=== PATIENT | female | born 2000 | race Caucasian/White ===

== ENCOUNTER 2024-09-11 20:15 | Emergency (ER) | payer BC, SELFPAY ==
[2024-09-11 20:36] VITALS: BP 144/94; PULSE 130; RESP 20; TEMP 37.8; O2SAT 98; BMI 29.4
--- NOTE | 2024-09-11 21:11 | ED_ITS ---
HPI - General Adult General Time Seen by Provider: 21:11 Date Seen: 09/11/24 Chief complaint: Cough Stated complaint: nasal pressure, cough Time Seen by Provider: 09/11/24 21:03 Source: patient and RN notes reviewed Mode of arrival: ambulatory Limitations: no limitations History of Present Illness HPI narrative: This 23-year-old female is coming in with cough, nasal congestion and fevers. She was sick last week starting on , today is Tuesday. She had fevers for 4 days, they went away for 1 day but returned again today. She is having some discomfort in her right ear, admits it is not really pain but it is full feeling, diminished hearing and muffled sound. She has some nasal congestion but no facial pain, no dental pain. She does not feel postnasal drainage. She is still coughing, really has not changed. No history of asthma. Related Data Home Medications ?Medication ?Instructions ?Recorded ?Confirmed control 09/11/24 Previous Rx's ?Medication ?Instructions ?Recorded amoxicillin 875 mg-potassium 1 tab PO BID #14 tabs 09/11/24 clavulanate 125 mg tablet codeine 10 mg-guaifenesin 100 mg/5 5 - 10 ml PO Q6H PRN #120 mL 09/11/24 mL oral liquid (Guaifenesin AC) Allergies Allergy/AdvReac Type Severity Reaction Status Date / Time No Known Drug Allergies Allergy Verified 09/11/24 20:43 Review of Systems Status of ROS: Reports: 6 or more systems reviewed and unremarkable except as noted in History and below PFSH PFS Social History Smoking Status: Never smoker How often do you have a drink containing alcohol: monthly or less AUDIT-C Alcohol total score: 1 Non-prescribed substance use: denies use Exam Const: Vital Signs, click to edit/add: Vital Signs - 24 hr 09/11/24 20:36 Temperature 100.0 F H Pulse Rate [Pulse Oximeter] 130 H Respiratory Rate 20 Blood Pressure [Ri ght Upper Arm] 144/94 H Pulse Oximetry 98 Oxygen Delivery Me thod Room Air This 23-year-old female is alert, interactive, no apparent distress. Sclera slight injection but no drainage. No periorbital swelling or erythema. Pupils equal round reactive. Has some minimal drainage in her nares. Left TM canal looks normal. Right obscured by cerumen. Neck supple, no adenopathy. Lungs are clear, good air entry, no wheezing or crackles. CV fast but regular, no murmur, normal S1-S2, no S3-S4. Documenting provider has reviewed patient's vital signs: yes Course Course ED Course: Awaiting her triple viral swab. She is aware that there is very min in her right ear canal that may be causing the symptoms. Will try to curette it out 1st. Reevaluation(s) Time of Reevaluation #1: 21:24 Reevaluation #1: Attempted lighted ear cerumen removal from might ear. Wax is too far down in the canal, patient did not tolerate this, after solitary attempt stopped. Will have nursing staff do ear irrigation. Time of Reevaluation #2: 22:14 Reevaluation #2: Nursing staff did get a large piece of cerumen out of her ear. Her ear still feels plugged. There is maybe a little better sensation but overall still feels plugged. She occasionally will have some pain but mostly her ear just feels full and plugged. Re-evaluation of the ear canal shows white mucoid changes and bulging of the lower tympanic membrane, no erythema noted. There is no traumatic change from the ear wash. We are still awaiting the triple viral swab. It is likely that she is having a secondary complication or worsening of underlying virus. Would not be unheard of for DIANA to have fever, be better for a bit and have fever again. Given her ear findings, she is at risk for infection but does not appear infected yet. Time of Reevaluation #3: 22:51 Reevaluation #3: Have reviewed that her chest x-ray is completely normal. She does have influenza A. She is on day 5 of symptoms. The fact that her fever improved yesterday but is back today is not necessarily out of the realm of normal for me for this illness. She did not get her influenza vaccine this year. Will send an antibiotic in to the pharmacy, will have a placed on hold for 1 week. I do not think she requires an antibiotic but do want her to be able to have the capacity to get this if her ear is worsening. She states it still feels full, reviewed with her that it will because there is fluid in it. Antibiotic will not clear fluid but having fluid does put her at risk for subsequent infection. She will definitely feel pain if infection does start. She may have symptoms for 7-10 days, symptoms can linger longer than that but the actual illness itself can be a 7-10 day course illness. At this point, there is no evidence of secondary infection. She is not sleeping at night, will send some Robitussin with codeine in for her as well. Vital Signs Vital signs: Initial Vital Signs Temperature 100.0 F H 09/11/24 20:36 Temperature Source Temporal Artery Scan 09/11/24 20:36 Pulse Rate 130 H 09/11/24 20:36 Pulse Rhythm Regular 09/11/24 20:36 Respiratory Rate 20 09/11/24 20:36 Blood Pressure 144/94 H 09/11/24 20:36 Blood Pressure Mean 110 H 09/11/24 20:36 Blood Pressure Position Sitting 09/11/24 20:36 Pulse Oximetry 98 09/11/24 20:36 Oxygen Delivery Method Room Air 09/11/24 20:36 Vital Signs Temperature 100.0 F H 09/11/24 20:36 Pulse Rate 130 H 09/11/24 20:36 Respiratory Rate 20 09/11/24 20:36 Blood Pressure 144/94 H 09/11/24 20:36 Pulse Oximetry 98 09/11/24 20:36 Oxygen Delivery Method Room Air 09/11/24 20:36 Temperature 100.0 F H 09/11/24 20:36 Pulse Rate 130 H 09/11/24 20:36 Respiratory Rate 20 09/11/24 20:36 Blood Pressure 144/94 H 09/11/24 20:36 Pulse Oximetry 98 09/11/24 20:36 Oxygen Delivery Method Room Air 09/11/24 20:36 Medical Decision Making Lab Data Lab results reviewed: Yes I reviewed the patient's lab results Labs: Lab Results 09/11/24 Range/Units 20:49 SARS-CoV-2 (PCR) Negative SARS-CoV-2 (Negative) Influenza Type A (PCR) POSITIVE PCR FLU A A (Negative) Influenza Type B (PCR) Negative PCR FLU B (Negative) RSV (PCR) Negative PCR RSV (Negative) Imaging Data Chest x-ray: Attestation: I have reviewed the pertinent imaging results. My impression: One-view portable chest x-ray is not showing any evidence of infiltrate, lungs looked completely clear, no pleural effusion on my preliminary review. Radiologist's impression: Patient: KASSI VÁSQUEZ Facility:?[facility] Patient ID:?[id number] Site Patient ID:?[id number]. Site :?1998 Study:?XRay-Chest 1V-09/11/2024 10:35:19 PM Ordering Physician:?Laura Cassidy Final Report: Indication: Cough Technique: Single view of the chest Comparison: None Findings/Impression: No acute cardiopulmonary process detected. Dictated by Dhiraj Salinas MD @ 09/11/2024 10:39:05 PM (Electronic Signature) Discharge Plan Discharge Clinical Impression: Acute serous otitis media, right ear, Cerumen impaction, Influenza A Patient Disposition: Home, Self-Care Condition: Stable Instructions: Influenza (ED), Fluid In The Ear (Serous Otitis Media) (ED) Additional Instructions: Can continue with dull sin during the day, Robitussin with codeine at night to help with cough and cold symptoms. Do recommend getting some Flonase or Nasacort in using for the next 1-2 weeks to help try to alleviate the serous otitis in the right ear; follow bottle directions for dosing instructions. You are too late for Tamiflu to be helpful. Have sent prescription in for antibiotic to be used if your right ear does start to hurt. Antibiotics are not going to shorten or help this illness right now, this is viral. Continue with Tylenol and ibuprofen alternating for fever control. If you have concerns about her illness, think you are worsening or there are new issues, please seek re- evaluation. Note is provided to be out of work. Do recommend that you quarantine until you are improving and fever free off medicines for at least 24 hours. Activity Level: Activity as Tolerated Prescriptions: New amoxicillin-pot clavulanate 875-125 mg tablet 1 tab PO BID Qty: 14 0RF codeine-guaifenesin [Guaifenesin AC] 10-100 mg/5 mL liquid 5 - 10 ml PO Q6H PRNQty: 120 0RF No Action control Follow Up/Referrals: Provider,Not a Local [Primary Care Provider] - Stand Alone Forms: [facility] Info Instructions
--- OUTSIDE RECORDS SUMMARY | 2024-09-11 21:45 | XMS_ITS | Referral Summary ---
Author Organization [place] Address [facility] [place] [address] Care Team Providers Care Electric Razor Assembler Name Role Phone Jaquelin Mckay MD Unavailable [phone] Jaquelin Mckay MD Primary Care Provider [phone] Allergies No known active allergies Medications norgestim-eth estrad triphasic (ORTHO TRI-CYCLEN) 0.18/0.215/0.25 MG-35 MCG tabletIndications: Encounter for surveillance of contraceptive pills Take 1 tablet by mouth daily. 90 tablet 3 4 Active valACYclovir (VALTREX) 1000 mg tabletIndications: Cold sore Take 2 tablets (2,000 mg) by mouth 2 times daily. 4 tablet 4 4 Active Active Problems Problem Noted Date Diagnosed Date Encounter for surveillance of contraceptive pill s 06/07/2024 Pap smear of cervix declined 06/07/2023 Cold sore 06/07/2023 Mild intermittent asthma 06/15/2018 Allergic rhinitis 02/24/2007 Immunizations Name Administration Dates Next Due DTAP (<7y) 11/11/2003, 9,01/23/1999,11/19 Flu, Unspecified 06/15/2018 [id number] Novel Flu 10/07/2009 HEPATITIS A (PEDS 12M-18Y) 04/17/2013,05/04/2011 HPV9 04/25/2017,12/21/2016,04/06/2016 Hepatitis B, Peds 07/24/1999,1998,09/26/18 99 Historic Hib Hib-titer 03/20/1999,01/23/1999, Historical Rotavirus 01/23/1999 Influenza (H1N1) 10/07/2009 Influenza (IIV3) PF 08/22/2013, 2,06/19/2010,10/07,07/30/2008,08/09/2007,08/10/2006 ,08/08/2003,09/20/2002,08/01/2002 Influenza (prior to 2023) 10/07/2009 Influenza Vaccine >6 months,quad, PF 07/2022,07/27/2017,08/05/2016,07/28,07/03/2014 Influenza Vaccine, 6+MO IM (QUADRIVALENT W/PRESERVATIVES) 08/06/2020,06/25/2019,06/15/2018 Influenza, Split Virus, Triv alent, Pf (Fluzone\Fluarix) 10/07/2009 MMR 11/11/2003,10/08/1999 Meningococcal ACWY (Menveo ) 04/06/2016,05/04/2011 Pneumococcal (PCV 7) 10/05/2000,06/17/2000 Poliovirus, inactivated (IPV) 11/11/2003 ,12/24/1999,01/23/1999,11/19 Rotavirus, Pentavalent 01/23/1999 TDAP (Adacel,Boostrix) 04/29/2011 TRIHIBIT (DTAP/HIB, <7y) 12/24/1999 Td (Adult), Adsorbed 07/15/2021 Typhoid IM 09/11/2014 Varicella 11/25/2009,10/08/1999 Social History Tobacco Use Types Packs/Day Years Used Date Smoking Tobacco: Never Smokeless Tobacco: Never Tobacco Cessation:Counseling Given: Not Answered Alcohol Use Standard Drinks/Week Comments Yes 0 (1 standard drink = 0.6 oz pur e alcohol) 1-2 a week maybe Social Connection and Isolat ion Panel [NHANES] Answer Date Recorded Frequency of Communication w ith Friends and Family Not on file 06/05/2024 How often do you get togethe r with friends or relatives? More than three times a week 06/05/2024 Attends Yazidi Services Not on file 06/05 Active Member of Clubs or Organizations Not on f ile 06/05/2024 Attends Club or Organization Meetings Not on christ e 06/05/2024 Marital Status Not on file 06/05/2024 AUDIT-C Answer Date Recorded Q1: How often do you have a drink containing alc ohol? Monthly or less 06/07/2023 Q2: How many drinks containi ng alcohol do you have on a typical day when you are drinking? 1 or 2 06/07/2023 Frequency of Binge Drinking Not on file 11/2022 PHQ-2 Answer Date Recorded PHQ-2 Score 0 06/07/2024 [facility] Occupat ional Health - Occupational Stress Questionnaire Answer Date Recorded Do you feel stress - tense, restless, nervous, or anxious, or unable to sleep at night because your mind is troubled all the time - these days? Not at all 06/05/2024 Exercise Vital Sign Answer Date Recorde d On average, how many days pe r week do you engage in moderate to strenuous exercise (like a brisk walk)? 5 days 06/05/2024 On average, how many minutes do you engage in exercise at this level? 30 min 06/05/2024 Adolescent Education Answer Date Record ed Getting School Help Needed Not on file 05/28 Food Insecurity Answer Date Recorded Within the past 12 months, d id you worry that your food would run out before you got money to buy more? No 06/05/2024 Within the past 12 months, d id the food you bought just not last and you didn t have money to get more? No 06/05/2024 Housing Stability Answer Date Recorded Do you have housing? (Housin g is defined as stable permanent housing and does not include staying ouside in a car, in a tent, in an abandoned building, in an overnight correction, or couch-surfing.) No 06/05/2024 Are you worried about losing your housing? No 06/05/2024 Financial Resource Strain Answer Date R ecorded Within the past 12 months, h ave you or your family members you live with been unable to get utilities (heat, electricity) when it was really needed? No 06/05/2024 Transportation Needs Answer Date Record ed Within the past 12 months, h as lack of transportation kept you from medical appointments, getting your medicines, non-medical meetings or appointments, work, or from getting things that you need? No 06/05/2024 Interpersonal Safety Answer Date Record ed Do you feel physically and e motionally safe where you currently live? Yes 06/07/2024 Within the past 12 months, h ave you been hit, slapped, kicked or otherwise physically hurt by someone? No 06/07/2024 Within the past 12 months, h ave you been humiliated or emotionally abused in other ways by your partner or ex-partner? No 06/07/2024 Comments No Sex and Gender Information Value Date Recorded Sex Assigned at Not on file Legal Sex Female 1:50 PM CDT Gender Identity Not on file Sexual Orientation Not on file Last Filed Vital Signs Vital Sign Reading Time Taken Comments Blood Pressure 128/88 06/07/2024 5:13 PM CDT Pulse 79 06/07/2024 5:13 PM CDT Temperature 37 C (98.6 F) 06/07/2024 5:13 PM CDT Respiratory Rate 14 06/07/2024 5:13 PM CDT Oxygen Saturation 97% 06/07/2024 5:13 PM CDT Inhaled Oxygen Concentration - - Weight 84.4 kg (186 lb) 06/07/2024 5:13 PM CDT Height 168.3 cm (5' 6.25) 06/07/2024 5:13 PM CD T Body Mass Index 29.8 06/07/2024 5:13 PM CDT Plan of Treatment Not on file Procedures Procedure Name Priority Date/Time Associated Diagnosis Comments GYNECOLOGIC CYTOLOGY Routine 06/07/2024 5:28 PM CDT Cervical cancer screening from Last 3 Months or Most Recently Relevant to Health Maintenance Results * Pap Screen Reflex to HPV if ASCUS - Recommended Age 25 - 29 Years (06/07/2024 5:28 PM CDT) Interpretation Negative for Intraepithelial Lesion or Malignancy (NILM) 06/13/2024 10:17 AM CDT [facility] Comment Papanicolaou Test Limitations: Cervical cytology is a screening test with limited sensitivity, and regular screening is critical for cancer prevention. Pap tests are primarily effective for the diagnosis/prevent ion of squamous cell carcinoma, not adenocarcinoma or other cancers. 06/13/2024 10:17 AM CDT [facility] Specimen Adequacy Satisfactory for evaluation, endocervical/benitez sformation zone component absent 06/13/2024 10:17 AM CDT [facility] Clinical Information none 06/13/2024 10:17 AM CDT [facility] Reflex Testing Yes if ASCUS 06/13/20 24 10:17 AM CDT [facility] Previous Abnormal? No 06/13/2024 10:17 AM CDT [facility] Performing Labs The technical component of this testing was completed at [facility]. Stain controls for all stains resulted within this report have been reviewed and show appropriate reactivity. 06/13/2024 10:17 AM CDT [facility] Brushing ENDOCERVICAL STRUCTURE / Unknown Non-blood Collection / Unknown 06/07/2024 5:28 PM CDT 06/07/2024 6:22 PM CDT Jaquelin Mckay MD LAB - LOI AP Final Res ult [facility] Specialty Lab [address] [facility], [address] [id number] from Last 3 Months or Most Recently Relevant to Health Maintenance Insurance [id number] OUT OF STATE BC OUT OF STATE Care Teams Electric Razor Assembler Relationship Specialty Start [place] [id number] [place] [address] PCP - General Family Medicine 06/07/24 [place] [id number] [place] [address] Assigned PCP 05/12/23
--- OUTSIDE RECORDS SUMMARY | 2024-09-11 21:45 | XMS_ITS | Clinical Summary ---
Author Organization [place] Address [facility] [place] [address] Care Team Providers Care Nurse Case Manager Name Role Phone Jaquelin Mckay MD Unavailable [phone] Jaquelin Mckay MD Primary Care Provider [phone] Allergies No known active allergies Medications norgestim-eth [...] DTAP (<7y) 11/11/2003, 9,01/23/1999,11/19 Flu, Unspecified 06/15/2018 [id number] Novel Flu 10/07/2009 HEPATITIS A (PEDS 12M-18Y) [...] Adsorbed 07/15/2021 Typhoid IM 09/11/2014 Varicella 11/25/2009,10/08/1999 Family History * Patient is adopted Medical History Relation Comments Unknown/Adopted No family hx of Social History Tobacco Use Types Packs/Day Years [...] than three times a week 06/05/2024 Attends Yazidism Services Not on file 06/05 Active Member [...] Answer Date Recorded PHQ-2 Score 0 06/07/2024 [facility] ional Health - Occupational Stress [...] Answer Date Recorded Do you have housing? (Jeyson g is defined as stable permanent housing and does not include staying ouside in a car, in a tent, in an abandoned building, in an overnight mcfp, or couch-surfing.) No 06/05/2024 Are you worried [...] 06/07/2024 5:13 PM CDT Plan of Treatment Health Maintenance Due Date Last Done Comments ASTHMA ACTION PLAN 1998 Pneumococcal Vaccine: Pediatrics (0 to 5 Years) and At-Risk Patients (6 to 49 Years) (1 of 2 - PCV) 2017 10/05/2000, 06/17/2000 COVID-19 Vaccine ( - season) 2024 INFLUENZA VACCINE (#1) 2024 , 08/06/2020, 06/25/2019, Additional history exists PHQ-2 (once per calendar year) 2024 06/07/2024, 06/07/2023 ASTHMA CONTROL TEST 12/06/2024 06/07/2024, 06/07/2023, 06/15/2018 ANNUAL REVIEW OF HM ORDERS 06/07/2025 06/07/2024, YEARLY PREVENTIVE VISIT 06/07/2025 06/07/20 24, 06/07/2023, 05/05/2020 PAP 06/07/2027 06/07/2024 ADVANCE CARE PLANNING 06/07/2029 06/07/2024 DTAP/TDAP/TD IMMUNIZATION (8 - Td or Tdap) 07/15/2031 07/15/2021, 04/29/2011, 11/11/2003, Additional history exists RSV VACCINE (1 - 1-dose 75+ series) 2073 HEPATITIS B IMMUNIZATION Completed 999, 1998, 1998 MENINGITIS IMMUNIZATION Completed 04/06/2016, 05/04 HPV IMMUNIZATION Completed 04/25/2017, , 04/06/2016 HEPATITIS C SCREENING Discontinued HIV SCREENING Discontinued MENINGITIS B IMMUNIZATION Aged Out No longer eligible based on patient's age to complete this topic RSV MONOCLONAL ANTIBODY Aged Out No l onger eligible based on patient's age to complete this topic Procedures Procedure Name Priority Date/Time Associated Diagnosis [...] if ASCUS 06/13/20 24 10:17 AM CDT [facility] Previous Abnormal? No 06/13/2024 10:17 AM CDT [facility] Performing Labs The technical component of this testing was completed at [facility]. Stain controls for all stains resulted within this report have been reviewed and show appropriate reactivity. 06/13/2024 10:17 AM CDT [facility] Brushing ENDOCERVICAL STRUCTURE / Unknown Non-blood Collection / Unknown 06/07/2024 5:28 PM CDT 06/07/2024 6:22 PM CDT us Jaquelin Mckay MD LAB - BEAKER AP Final Res ult [facility] [address] [facility], [address] [place], [place] [id number] from Last 3 Months or Most Recently Relevant to Health Maintenance Insurance [facility] OUT OF STATE BC OUT OF STATE Care Teams Nurse Case Manager Relationship Specialty Start [place] [address] [place] [address] PCP - General Family Medicine 06/07/24 [place] [id number] [place] [address] Assigned PCP 05/12/23
--- OUTSIDE RECORDS SUMMARY | 2024-09-11 21:45 | XMS_ITS | Clinical Summary ---
Author Organization [facility] Address [place], [place] [address] Care Team Providers Care Front Office Secretary Name Role Phone Debbie Martinez MD Primary Care Prov ider Allergies Active Allergy Reactions Criticality Noted Date Comments Pollen Extracts Runny Nose 12/21/2016 Medications cetirizine (ZYRTEC) 10 mg tablet Take 1 tablet by mouth once daily. 0 0 Active ketoconazole 2% topical (NIZORAL) creamIndications :Tinea pedis, unspecified laterality Apply topically to affected area(s) 2 times daily. 60 g 1 0 Active diphenhydrAMINE (BENADRYL) 25 mg capsule Take 1 Capsule (25 mg) by mouth every 4 hours. 0 1 Active ibuprofen (ADVIL; MOTRIN) 200 mg tablet Take 2 Tablets (400 mg) by mouth every 6 hours. 0 1 Active desogestrel-ethi nyl estradiol 0.15-30 mg-mcg (ORTHO-CEPT; DESOGEN) tabletIndication s:Irregular periods Take 1 Tablet by mouth once daily. 90 Tablet 3 2 Active norgestimate-eth inyl estradioL (Tri-Estarylla) 0.18/0.215/0.25 mg-35 mcg (28) tabletIndication s:Dysmenorrhea Take 1 Tablet by mouth once daily. 84 Tablet 3 Active Active Problems Problem Noted Date Diagnosed Date Allergic rhinitis, cause unspecified 02/24/2007 Resolved Problems Problem Noted Date Diagnosed Date Resolved Date Exercise-induced asthma 10/05/2012 0810/2015 Immunizations Name Administration Dates Next Due AMB Influenza, IIV4 PF (=>6 mos Flulaval,Fluzone Fluarix)(Flu Clinic Only) 07/27/2017,07/03/2014 DTaP 11/11/2003, 9,01/23/1999,11/19 DTaP-HIB (TriHIBIT) 12/24/1999 HIB HbOC (HibTITER) 03/20/1999,01/23/1999,1998 HPV 9 (Gardasil 9) 04/25/2017,12/21/2016, 016 Hepatitis A (Peds) 04/17/2013,05/04/2011 Hepatitis B (Peds) 07/24/1999,1998, 999 Inactivated Polio Vaccine 11/11/2003,,01/23/1999,11/19 Influenza A (H1N1), Inactivated 10/07/2009 Influenza A (H1N1), Inactiva blanquita (Age >=3 Years) 10/07/2009 Influenza Virus, Unspecified 06/15/2018 Influenza, IIV3 (Age 6-35 mos) 10/07/2009 Influenza, IIV3 (Age >=3 years) 08/22/20 13,06/05/2012,06/19/2010,10/07,07/30/2008,08/09/2007,08/10/2006 ,08/08/2003,09/20/2002,08/01/2002 Influenza, IIV4 08/05/2016,07/28/2015,07/03/2014 MENINGOCOCCAL VACCINE 2 VIAL 2MO-55YO (MENVEO) 04/06/2016,05/04/2011 MMR 11/11/2003,10/08/1999 Pneumococcal conj 7-Valent (Prevnar 7) 1,06/17/2000 Rotavirus Pentavalent (ROTATEQ) 01/23/1999 Rotavirus Tetravalent (ROTASHIELD) 01/23/1999 Td (Age >=7 Years) 07/15/2021 Tdap 04/29/2011 Typhoid (injectable) 09/11/2014 Varicella Vaccine 11/25/2009,10/08/1999 Social History Tobacco Use Types Packs/Day Years Used Date Smoking Tobacco: Never Smokeless Tobacco: Never Tobacco Cessation:Counseling Given: Yes Alcohol Use Standard Drinks/Week Comments Not Currently 0 (1 standard drink = 0.6 oz pur e alcohol) PHQ-2 Answer Date Recorded PHQ-2 TOTAL SCORE 0 07/15/2021 Social Connections Answer Date Recorded Frequency of Communication with Friends and Fami ly Not on file 09/05/2021 Financial Resource Strain Answer Date R ecorded Difficulty of Paying Living Expenses Not on file 09/05/2021 Difficulty of Paying Living Expenses Not on file 09/05/2021 Comments No Sex and Gender Information Value Date Recorded Sex Assigned at Not on file Legal Sex Female 5:48 AM PASTOR Gender Identity Not on file Sexual Orientation Not on file Obstetrics History Last Filed Vital Signs Vital Sign Reading Time Taken Comments Blood Pressure 123/81 09/14/2021 10:36 AM PASTOR Pulse 69 09/14/2021 10:36 AM PASTOR Temperature 36.3 C (97.4 F) 01/22/2022 8:16 PM CDT Respiratory Rate 18 05/05/2020 2:57 PM CDT Oxygen Saturation 99% 09/14/2021 10: 36 AM PASTOR Inhaled Oxygen Concentration - - Weight 79.7 kg (175 lb 12.8 oz) 022 10:36 AM PASTOR Height 168.9 cm (5' 6.5) 07/15/2021 1:30 PM PASTOR Body Mass Index 27.95 07/15/2021 1:30 PM PASTOR Plan of Treatment Health Maintenance Due Date Last Done Comments HIV for age 15-65 2013 Hepatitis C screening for age 18-79 2016 Pap test for age 21-65 2019 BMI (ht and wt on same day) for age 18+ 07/15/2022 07/15/2021, 05/05/2020, 12/21/2016 Depression screening for age 12+ 07/15/2022 07/15/2021, 05/05/2020, 04/06/2016 COVID-19 vaccine series (2023- season) 2024 Influenza for age 9-49 05/06/2024 8, 07/27/2017, 08/05/2016, Additional history exists Tetanus booster 07/15/2031 07/15/2021, 04/29/2011 Pneumococcal series for age 6-49 Aged Out 10/05/2000, 06/17/2000 No longer eligibl e based on patient's age to complete this topic Tdap Completed 04/29/2011 HPV series for age 9-26 Completed 04/25/20 17, 12/21/2016, 04/06/2016 Insurance MEDICAID [place] [employer] Care Teams Front Office Secretary Relationship Specialty Start Date End Date Debbie Martinez MD [address] [place] [address] PCP - General Family Practice 03/31/20
--- NOTE | 2024-09-11 22:19 | CRLHL7_ITS ---
For Patients: As a result of the Cures Act, medical imaging exams and procedure reports are released immediately into your electronic medical record. You may view this report before your referring provider. If you have questions, please contact your health care provider. Indication: Cough Technique: Single view of the chest Comparison: None Findings/Impression: No acute cardiopulmonary process detected. Dictated by Dhiraj Salinas MD @ 09/11/2024 10:39:05 PM (Electronically Signed)
[2024-09-11 22:39] LABS: PCR FLU A POSITIVE PCR FLU A (Negative); PCR FLU B Negative PCR FLU B (Negative); PCR RSV Negative PCR RSV (Negative); SARS PCR* Negative SARS-CoV-2 (Negative)
== END 2024-09-11 23:11 | disposition home or self-care (01) ==
PROVIDERS: Emergency Provider Family Medicine
DX: H65.01 Acute serous otitis media, right ear (principal); J09.X2 Influenza due to identified novel influenza A virus with other respiratory manifestations; H61.21 Impacted cerumen, right ear
CPT/HCPCS: 71045; 87631; 99284